=== PATIENT | male | born 2000 | race Caucasian/White ===

== ENCOUNTER 2019-12-18 06:14 | Day surgery (SDC) | payer OTHER ==
[2019-12-18] MEDS ORDERED: cefTRIAXone 2 GM VIAL ONE (06:23)
[2019-12-18] MEDS ORDERED: LACTATED RINGERS 1,000 ML IV ONE ×2 (06:46→10:43)
[2019-12-18] MEDS ORDERED: BUPIVACAINE 0.25% PF 30 ML VIAL ONE (07:09)
--- NOTE | 2019-12-18 07:10 | ANESTHESIA ---
Pre-Anesthesia VS, & Labs - Diagnosis left clavicle fx - Procedure left clavicle orif Vital Signs: Temp Pulse Resp BP Pulse Ox 36.5 C 57 L 18 146/86 H 100 12/18/19 06:20 12/18/19 06:20 12/18/19 06:20 12/18/19 06:20 12/18/19 06:20 Height 5 ft 7 in Weight (kg) 65.77 kg - NPO >8 hours Home Medications and Allergies Home Medications: Ambulatory Orders oxyCODONE/ACET 5/325 [Percocet 5 mg/325 mg] 1 each PO Q4-6H PRN 12/14/19 oxyCODONE/ACET 5/325 [Percocet 5 mg/325 mg] 1 each PO Q4-6H PRN 12/14/19 Allergies/Adverse Reactions: Allergies Allergy/AdvReac Type Severity Reaction Status Date / Time No Known Drug Allergies Allergy Verified 12/14/19 12:18 Anes History & Medical History - Anesthetic History Anesthesia Complications: reports: No previous complications Family history of Anesthesia Complications: Denies - Medical History Cardiovascular: reports: None Pulmonary: reports: None Gastrointestinal: reports: None Urinary: reports: None, Retention Neuro: reports: None Musculoskeletal: reports: None, Other Endocrine/Autoimmune: reports: None Skin: reports: None Smoking Status: Never smoker Psychosocial: reports: No issues indicated Exam General: Alert, Oriented x3, Cooperative, No acute distress Dental: WNL Mouth Openin Fingerbreadth Neck Mobility: Normal Mallampati classification: II Thyromental Distance: 4-6 cm Respiratory: Lungs clear, Normal breath sounds, No respiratory distress, No accessory muscle use Cardiovascular: Regular rate, Normal S1, Normal S2, No murmurs Abdomen: Normal bowel sounds, Soft, No tenderness, No hepatospenomegaly, No masses Extremities: No clubbing, No cyanosis, No edema, Normal pulses, No tenderness/swelling Neurological: Normal gait, Normal speech, Strength at 5/5 X4 ext, Normal tone, Sensation intact, Cranial nerves 3-12 NL, Reflexes 2+ Mental/Cognitive Status: Alert/Oriented X3, Normal for patient Cognitive Status: Within normal limits Plan Anesthesia Type: General, Other Regional Block: Per Surgeon's request for Post Op pain control Consent for Procedure(s) Verified and Reviewed: Yes Code Status: Attempt Resuscitation ASA classification: 1-Healthy patient Is this case an emergency?: No
[2019-12-18] MEDS ORDERED: GLYCOPYRROLATE 1 MG/5 ML VIAL IVP ONE (07:27)
[2019-12-18] MEDS ORDERED: DEXAMETHASONE 4 MG/ML VIAL IVP ONE (07:27)
[2019-12-18] MEDS ORDERED: PROPOFOL 200 MG/20 ML VIAL IVP ONE (07:27)
[2019-12-18] MEDS ORDERED: NEOSTIGMINE 1 MG/1 ML 10 ML MDV IVP ONE (07:27)
[2019-12-18] MEDS ORDERED: ACETAMINOPHEN 1,000 MG/100 ML 100 ML IV ONE (07:27)
[2019-12-18] MEDS ORDERED: ROCURONIUM 50 MG/5 ML VIAL IVP ONE (07:27)
[2019-12-18] MEDS ORDERED: ONDANSETRON 4 MG/2 ML VIAL IVP ONE (07:27)
[2019-12-18] MEDS ORDERED: fentaNYL 100 MCG/2 ML VIAL IVP ONE (07:27)
[2019-12-18] MEDS ORDERED: PHENYLEPHRINE 10 MG/ML VIAL IV ONE (07:27)
[2019-12-18] MEDS ORDERED: BUPIVACAINE 0.25% PF 30 ML VIAL SUBQ ONE (08:02)
[2019-12-18] MEDS ORDERED: oxyCODONE 5 MG TABLET PO PRN (11:17)
[2019-12-18] MEDS ORDERED: ONDANSETRON 4 MG/2 ML VIAL IVP PRN (11:17)
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
[2019-12-18] MEDS ORDERED: oxyCODONE 5 MG TABLET ONE (12:13)
[2019-12-18 13:18] VITALS: BP 128/80
--- NOTE | 2019-12-18 14:37 | XRAY Report ---
Reason: fx rt clavical Procedure Date: 12/18/2019 Accession Number: [id number] / [id number] Procedure: [place] - OR C-Arm Procedure CPT Code: Final Report FULL RESULT: PROCEDURE: OR C-Arm Procedure INDICATIONS: fx rt clavical TECHNIQUE: Multiple fluoroscopic intraoperative views were obtained. COMPARISON: None. FINDINGS: Fluoroscopic intraoperative views demonstrate ORIF of a mid shaft clavicular fracture. Fracture fragments are in anatomic alignment. IMPRESSION: Fluoroscopic intraoperative views of ORIF of the left clavicle. Reviewed by: Jayne Crawford MD on 12/18/2019 2:36 PM PDT Approved by: Jayne Crawford MD on 12/18/2019 2:36 PM PDT Station ID: [id number]
== END 2019-12-18 06:15 | disposition home or self-care (01) ==
LOC: SDS 06:14
PROVIDERS: ATTEND Orthopaedic Surgery
DX: S42.022A Displaced fracture of shaft of left clavicle, initial encounter for closed fracture (principal)